=== PATIENT | male | born 1970 | race Caucasian/White ===

== ENCOUNTER 2017-12-12 21:59 | Emergency (ER) | payer BC ==
[2017-12-12 22:11] VITALS: BP 171/103; PULSE 82; O2SAT 96
--- NOTE | 2017-12-12 22:36 | ERPHSYRPT ---
- History of Present Illness Time Seen by Provider: 12/12/17 22:25 Source: patient Exam Limitations: clinical condition Patient Subjective Stated Complaint: Pt arrives to ER with c/o left foot pain stating injured 2 months ago while walking felt pop in ankle, felt better after a week, and popped again a month ago in middle of calf and again today in the ankle. pt able to ambulate with pain. Triage Nursing Assessment: see above Physician History: PATIENT WITH A HISTORY OF BILATERAL CHRONIC KNEE PAIN FOR YEARS, SCHEDULED FOR KNEE REPLACEMENTS OVER PAST 8 MONTHS, HAS NOT FOUND TIME TO TAKE OFF WORK YET. HE FELT A POPPING SENSATION IN HIS LEFT ANKLE 2 MONTHS, AGO HAS PERSISTENT PAIN IN HIS LEFT FOOT AND ANKLE, HAS PAIN UPON WEIGHT BEARING. DENIES INJURY OR TRAUMA. DENIES BRUISING, SWELLING OR DEFORMITY. 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 Method of Injury: unknown Occurred: other (2 MONTHS AGO) Quality: constant Severity of Pain-Max: moderate Lower Extremities Pain: hip: bilateral, leg: bilateral, knee: left, thigh: bilateral, foot: left, ankle: left, heel: bilateral, 1st toe: bilateral, 2nd toe : bilateral, 3rd toe: bilateral, 4th toe: bilateral, 5th toe: bilateral, other: bilateral Modifying Factors: Improves With: movement ( AND WEIGHT BEARING) Associated Symptoms: snapping sensation, popping sensation, other (PAIN UPON WEIGHT BEARING) Allergies/Adverse Reactions: No Known Drug Allergies Allergy (Unverified 12/12/17 22:10) Home Medications: Allopurinol [Allopurinol] 300 mg PO DAILY 12/12/17 [History] Amphet Asp/Amphet/D-Amphet [Adderall 30 mg Tablet] 30 mg PO DAILY 12/12/17 [ History] Diclofenac Sodium 75 mg PO DAILY 12/12/17 [History] Hydrochlorothiazide 25 mg [hydroDIURIL 25 MG] 25 mg PO DAILY 12/12/17 [ History] Lisinopril [Lisinopril] 40 mg PO DAILY 12/12/17 [History] - Review of Systems Constitutional: No Fever, No Chills Musculoskeletal: Arthralgias Psychological: No Symptoms - Past Medical History Pertinent Past Medical History: Yes Cardiac History: Hypertension - Past Surgical History Past Surgical History: Yes Musculoskeletal: Other Other Surgical History: bilateral knee scope - Social History Smoking Status: Current every day smoker Exposure to second hand smoke: Yes Drug Use: none Patient Lives Alone: No - Nursing Vital Signs Nursing Vital Signs: Initial Vital Signs Temperature 97.8 F 12/12/17 22:04 Pulse Rate 82 12/12/17 22:04 Respiratory Rate 18 12/12/17 22:04 Blood Pressure 171/103 12/12/17 22:04 O2 Sat by Pulse Oximetry 96 12/12/17 22:04 Pain Scale Pain Intensity 8 - Physical Exam General Appearance: alert Back Exam: No vertebral tenderness Knees Exam: left knee: soft tissue tenderness, other (LIMITED RANGE OF MOTION, NO JOINT LAXITY UPON VARUS VALGUS STRESS, PATELLA MIDLINE AND MOBILE. POPLITEAL AND PEDIS PULSES 2+) Ankle Exam: left ankle: limited range of motion, soft tissue tenderness (LEFT ANKLE MEDIAL, LATERAL MALLEOLAR TENDERNESS, NO JOINT LAXITY UPON VARUS/VALGUS STRESS, LEFT PEDIS PULSE 2+) Foot Exam: left foot: soft tissue tenderness (tenderness proximal left foot, no swelling, crepitus or ecchymosis) Neuro/Tendon Exam: normal sensation, normal motor functions Mental Status Exam: alert, oriented x 3, cooperative Skin Exam: normal color, warm, dry SpO2: 96 Oxygen Delivery: Room Air - Radiology Exams Left Ankle X-ray Interpretation: Interpreted by me, No Fracture (NO DISLOCATION) Left Foot X-ray Interpretation: Interpreted by me, Negative, No Fracture Left Knee X-ray Interpretation: No Fracture (MARKED DEGENERATIVE CHANGES, SPURS, NARROWING OF JOINT SPACE) Ordered Tests: Active Orders 24 hr Category Date Time Status ANKLE (3 VIEWS) Stat Exams 12/12/17 22:52 Taken FOOT (MINIMUM 3 VIEWS) Stat Exams 12/12/17 22:52 Taken KNEE (3 VIEWS) Stat Exams 12/12/17 22:24 Taken - Progress Progress: pain not gone completely Progress Note: 12/12/17 23:17 ULTRAM 50MG ORALLY. REFUSES CRUTCHES Counseled pt/family regarding: diagnosis, need for follow-up, rad results - Departure Time of Disposition: 23:24 Departure Disposition: Home Clinical Impression: DEGENERATIVE ARTHRITIS LEFT KNEE, ANKLE Condition: Stable Critical Care Time: No Referrals: CARTER DAI MD [Primary Care Provider] - Additional Instructions: ULTRAM 50MG EVERY 6 HOURS FOR PAIN NEEDED. CONSULT YOUR PRIMARY CARE PROVIDER FOR FOLLOWUP. Prescriptions: Tramadol HCl 50 mg [Ultram 50 mg] 50 mg PO Q6HPRN PRN #20 tablet PRN Reason: Pain
[2017-12-12] MEDS ORDERED: ULTRAM 50 MG PO ONE ×2 (23:14→23:22)
[2017-12-12] MEDS ORDERED: ULTRAM 50 MG ONE (23:22)
--- NOTE | 2017-12-13 21:52 | XRAY ---
Exam: 3 view left knee series from 12/12/2017. Comparison: Two-view left knee series from 09/02/2010. Indication: Injury. Findings: AP, shallow internal oblique, and mildly rotated lateral images of the left knee were obtained. I see no acute fracture, dislocation, or joint effusion. There is moderate narrowing of the lateral compartment of the left knee joint which has mildly progressed as compared to 09/02/2010. The medial compartment of the left knee joint appears fairly well-maintained. I do note some mild osteophytes at both the medial and lateral margins of the left knee joint. Mild hypertrophic degenerative change of the medial tibial eminence is seen. I suspect at least moderate degenerative change of the patellofemoral joint with prominent spurs on both sides of this joint. There is also mild spurring at the posterior margin of the distal left femur. There is a stable calcification posterior to the distal left femur which may represent a prominent fabella or synovial osteochondroma. Impression: 1. No acute left knee fracture, dislocation, or suprapatellar joint effusion is seen. 2. Tricompartmental osteoarthritis of the left knee which affects the lateral compartment and patellofemoral joint to the greatest degree. This appears to have progressed as compared to 09/02/2010.
--- NOTE | 2017-12-13 21:54 | XRAY ---
Exam: 3 views of the left ankle from 12/12/2017. Comparison: None. Indication: Injury. Findings: AP, oblique, and lateral images of the left ankle were obtained. I see no acute fracture or dislocation. The left ankle mortise is well-preserved and is uniform. No anterior left ankle joint effusion is seen. There is a normal plantar arch. Impression: 1. No acute fracture or dislocation of the left ankle is seen.
--- NOTE | 2017-12-13 21:57 | XRAY ---
Exam: 3 views of the left foot from 12/12/2017. Comparison: None. Indication: Injury. Findings: AP, oblique, and lateral radiographs of the left foot were obtained. I see no acute left foot fracture or dislocation. There is a normal plantar arch. There is marked narrowing of the left first MTP joint with prominent marginal spurring, particularly along the lateral aspect. There is some flattening and irregularity of the distal articular surface of the first metatarsal head. The findings are consistent with advanced osteoarthritis. The remainder the joint spaces appear unremarkable. The tarsals and metatarsals align correctly on all views. No other focal bone lesion is seen. Impression: 1. No acute left foot fracture or dislocation is seen. 2. Advanced/marked osteoarthritis of the left first MTP joint.
== END 2017-12-12 23:40 | disposition home or self-care (01) ==
LOC: ED 21:59
DX: M13.862 Other specified arthritis, left knee (principal); M13.879 Other specified arthritis, unspecified ankle and foot; Z72.0 Tobacco use; I10 Essential (primary) hypertension; M79.672 Pain in left foot; X50.9XXA Other and unspecified overexertion or strenuous movements or postures, initial encounter
CPT/HCPCS: 73562; 73610; 73630; 99283; A9270-GY

== ENCOUNTER 2018-02-28 09:32 | Emergency (ER) | payer BC ==
--- NOTE | 2018-02-28 09:53 | ERPHSYRPT ---
- History of Present Illness Time Seen by Provider: 02/28/18 09:53 Source: patient Exam Limitations: no limitations Physician History: This is a 47-year-old white male with history of bilateral chronic knee pain, high blood pressure, He arrives with complaint of pain in his right knee which has been chronic he denies any new injury He states he is not taking any pain medications at home since January Past medical history includes bilateral chronic knee pain, high blood pressure Past surgical history includes bilateral knee scope Timing/Duration: other (chronic knee pain) Severity: moderate Modifying Factors: Improves With: nothing Associated Symptoms: No nausea, No vomiting, No abdominal pain, No shortness of breath, No heartburn, No diaphoresis, No cough, No chills, No chest pain, No fever, No headaches, No loss of appetite, No malaise, No rash, No syncope, No seizure, No weakness (that he is already on di) Allergies/Adverse Reactions: No Known Drug Allergies Allergy (Unverified 12/12/17 22:10) Home Medications: Allopurinol 300 mg PO DAILY 12/12/17 [History] Amphet Asp/Amphet/D-Amphet [Adderall 30 mg Tablet] 30 mg PO DAILY 12/12/17 [ History] Diclofenac Sodium 75 mg PO DAILY 12/12/17 [History] Hydrochlorothiazide 25 mg [hydroDIURIL 25 MG] 25 mg PO DAILY 12/12/17 [ History] Lisinopril 40 mg PO DAILY 12/12/17 [History] Bupropion HCl 150 mg Sr [Wellbutrin SR 150 MG] 150 mg PO BID 02/28/18 [ History] Oxycodone / APAP 10/325 mg [Oxycodone-Acetaminophen 10-325] 1 tab PO Q4HPRN PRN 02/28/18 [History] Simvastatin 20 mg PO DAILY 02/28/18 [History] Tramadol HCl 50 mg [Ultram 50 mg] 50 mg PO BID 02/28/18 [History] - Review of Systems Constitutional: No Fever, No Chills Eyes: No Symptoms Ears, Nose, & Throat: No Symptoms Respiratory: No Cough, No Dyspnea Cardiac: No Chest Pain, No Edema, No Syncope Abdominal/Gastrointestinal: No Abdominal Pain, No Nausea, No Vomiting, No Diarrhea Genitourinary Symptoms: No Dysuria Musculoskeletal: Arthralgias (bilateral knee pain chronic right knee pain worse past several weeks.) Skin: No Rash Neurological: No Dizziness, No Focal Weakness, No Sensory Changes Psychological: No Symptoms Endocrine: No Symptoms All Other Systems: Reviewed and Negative - Past Medical History Pertinent Past Medical History: Yes Cardiac History: Hypertension - Past Surgical History Past Surgical History: Yes Musculoskeletal: Other Other Surgical History: bilateral knee scope - Social History Smoking Status: Current every day smoker Exposure to second hand smoke: Yes Drug Use: none Patient Lives Alone: No - Nursing Vital Signs Nursing Vital Signs: Initial Vital Signs Temperature 98.1 F 02/28/18 09:36 Pulse Rate 90 02/28/18 09:36 Respiratory Rate 16 02/28/18 09:36 Blood Pressure 138/92 02/28/18 09:36 O2 Sat by Pulse Oximetry 98 02/28/18 09:36 Pain Scale Pain Intensity 8 - Physical Exam General Appearance: no apparent distress, alert Eye Exam: PERRL/EOMI, eyes nml inspection Ears, Nose, Throat Exam: normal ENT inspection, TMs normal, pharynx normal, moist mucous membranes Neck Exam: normal inspection, non-tender, supple, full range of motion Respiratory Exam: normal breath sounds, lungs clear, No respiratory distress Cardiovascular Exam: regular rate/rhythm, normal heart sounds, normal peripheral pulses Gastrointestinal/Abdomen Exam: soft, normal bowel sounds, No tenderness, No mass Back Exam: normal inspection (that he walked in), normal range of motion, No CVA tenderness, No vertebral tenderness Extremity Exam: normal range of motion, other (right knee tender with palpation anteriorly) Neurologic Exam: alert, oriented x 3, cooperative, normal mood/affect, nml cerebellar function, nml station & gait, sensation nml, No motor deficits Skin Exam: normal color, warm, dry, No rash SpO2 Interpretation: normal (98%) - Course Nursing assessment & vital signs reviewed: Yes - Progress Progress: improved Progress Note: 02/28/18 09:57 This is a 47-year-old white male who has chronic knee pain he is complaining of increasing pain in his right knee for the past several weeks she was seen in this emergency room on 12/12/2017. An x-ray was performed he was given tramadol which she filled on February 19, 2018. Patient apparently sees Angy Emery He states that he has not received any recent narcotics. I have reviewed the patient's inspect report inspect report shows 180 oxycodone/ acetaminophen tablets which she received on January 20, 2018 review of the inspect report shows chronic oxycodone which was written for by a physician in [place] patient apparently had been referred to pain control clinic by Angy Emery. Patient really does not have any new problems he has continuing chronic pain he is on diclofenac for this. I have offered patient Toradol injection one time. He states that really doesn't do anything for him. I have told the patient that I cannot give him any narcotics we have a policy not to treat chronic pain he has chronic pain. Patient apparently left. - Departure Time of Disposition: 09:59 Departure Disposition: Home Clinical Impression: Arthritis Right knee pain Qualifiers: Chronicity: chronic Qualified Code(s): M25.561 - Pain in right knee Chronic knee pain Qualifiers: Laterality: bilateral Qualified Code(s): M25.561 - Pain in right knee Condition: Fair Critical Care Time: No Referrals: STEPHON EMERY NP [Primary Care Provider] - Additional Instructions: Return home. Pain medications as prescribed by your pain control physician or your family doctor. Return for acute distress or for severe symptoms.
[2018-02-28 09:54] VITALS: BP 138/92; PULSE 90; O2SAT 98
== END 2018-02-28 10:14 | disposition home or self-care (01) ==
LOC: ED 09:32
DX: M17.11 Unilateral primary osteoarthritis, right knee (principal); M25.561 Pain in right knee; Z79.899 Other long term (current) drug therapy
CPT/HCPCS: 99283

== ENCOUNTER 2018-12-20 15:39 | Emergency (ER) | payer BC ==
--- NOTE | 2018-12-20 17:10 | ERPHSYRPT ---
- History of Present Illness Source: patient Exam Limitations: no limitations Patient Subjective Stated Complaint: states was walking earlier today and felt a "pop" in left ankle. states this happened approx 5 months ago also. states pain is a "5". Triage Nursing Assessment: ambulated to room per self. skin w/d, color normal , resp easy. slight swelling noted to left ankle with tenderness. good cap refill and good pedal pulse. foot warm. Physician History: Pt is a 48 y/o male with a h/o injury of the Achilles tendon on the L ankle in the past. The pain resolved, and he did not treat it anymore. Yesterday he was doing some lifting and turning, and he felt a "pop" on his left Achilles, and he fell down. Pt states, he can't dorsi flex, and it is hard for him to rotate his ankle. Method of Injury: twisted Occurred: yesterday Quality: constant Severity of Pain-Max: moderate Severity of Pain-Current: moderate Lower Extremities Pain: ankle: left (pain and change in ROM) Modifying Factors: Improves With: cold therapy, pain medication, rest Associated Symptoms: unable to bear weight, popping sensation Allergies/Adverse Reactions: No Known Drug Allergies Allergy (Verified 12/20/18 16:05) Home Medications: Allopurinol 300 mg PO DAILY 12/12/17 [History] Diclofenac Sodium 75 mg PO DAILY 12/12/17 [History] Hydrochlorothiazide 25 mg [hydroDIURIL 25 MG] 25 mg PO DAILY 12/12/17 [ History] Lisinopril 40 mg PO DAILY 12/12/17 [History] Simvastatin 20 mg PO DAILY 02/28/18 [History] Hx Tetanus, Diphtheria Vaccination/Date Given: Yes Hx Influenza Vaccination/Date Given: Yes Hx Pneumococcal Vaccination/Date Given: No - Review of Systems Constitutional: No Fever, No Chills Musculoskeletal: Joint Pain Skin: No Rash Neurological: No Dizziness, No Focal Weakness, No Sensory Changes - Past Medical History Pertinent Past Medical History: Yes Cardiac History: Hypertension - Past Surgical History Past Surgical History: Yes Gastrointestinal: Appendectomy Musculoskeletal: Other Other Surgical History: bilateral knee scope - Social History Smoking Status: Current every day smoker How long have you smoked: 20yrs Exposure to second hand smoke: Yes Drug Use: none Patient Lives Alone: No - Nursing Vital Signs Nursing Vital Signs: Initial Vital Signs Temperature 98.1 F 12/20/18 15:53 Pulse Rate 95 H 12/20/18 15:53 Respiratory Rate 16 12/20/18 15:53 Blood Pressure 129/87 12/20/18 15:53 O2 Sat by Pulse Oximetry 96 12/20/18 15:53 Pain Scale Pain Intensity 5 - Physical Exam General Appearance: alert Back Exam: normal inspection, No vertebral tenderness Ankle Exam: right ankle: non-tender, normal inspection, normal range of motion, left ankle: limited range of motion (Can't dorsi flex), pain, soft tissue tenderness SpO2: 96 - Course Nursing assessment & vital signs reviewed: Yes - Radiology Exams Left Ankle X-ray Interpretation: Interpreted by me (No fracture or bony abnormality) Ordered Tests: Active Orders 24 hr Category Date Time Status ANKLE (3 VIEWS) Stat Exams 12/20/18 16:37 Taken - Progress Progress: unchanged Progress Note: 12/20/18 17:08 Pt was seen and examined. He has limited ROM of the L ankle. Pt is having problem dorsi-flexing the L ankle. XR does not show any fracture or bony abnormality. Pt should rest, elevate and ice the ankle. He should f/u with PCP for Ankle MRI to r/o Achilles tendon tear. Pt should use OTC Aleve or Motrin for the pain. Will see patient in: office Counseled pt/family regarding: need for follow-up - Departure Departure Disposition: Home Clinical Impression: Achilles tendinitis Condition: Stable Critical Care Time: No Referrals: STEPHON MARTINEZ NP [Primary Care Provider] - Additional Instructions: F/U with PCP for MRI order. Keep leg elevated and iced. Use OTC NSAIDs for pain. Forms: Work/School Release Form
[2018-12-20 17:28] VITALS: BP 108/74; PULSE 91; O2SAT 97
--- NOTE | 2018-12-20 22:15 | XRAY ---
Indication: Pain. Comparison: December 12, 2017. 3 views of the left ankle obtained. Again no bony, articular, or soft tissue abnormalities.
== END 2018-12-20 17:59 | disposition home or self-care (01) ==
LOC: ED 15:39
DX: M76.62 Achilles tendinitis, left leg (principal); I10 Essential (primary) hypertension; Z79.899 Other long term (current) drug therapy
CPT/HCPCS: 73610; 99283